=== PATIENT | female | born 1985 | race Caucasian/White ===

== ENCOUNTER → 2018-12-04 13:06 | Outpatient (CLI) | payer OTHER, MEDICAID, SELFPAY ==
[2018-12-04 13:39] LABS: Influenza A and B by PCR Rapid Negative (Negative)
== END ==
PROVIDERS: PCP Family Medicine; Visit Provider Physician Assistant
DX: R68.89 Other general symptoms and signs (principal); J02.9 Acute pharyngitis, unspecified
CPT/HCPCS: 87070; 87400

== ENCOUNTER 2019-08-01 15:37 | Emergency (ER) | payer OTHER, MEDICAID, SELFPAY ==
[2019-08-01 16:04] VITALS: BP 135/91; PULSE 105; RESP 20; TEMP 36.9; O2SAT 100
--- NOTE | 2019-08-01 17:23 | ED.BACK ---
HPI - Back Pain/Injury General Chief Complaint: Back Pain/Injury Stated Complaint: lower back pain Time Seen by Provider: 08/01/19 17:00 Source: patient Mode of arrival: Ambulatory Limitations: no limitations History of Present Illness HPI Narrative: 34-year-old female daily smoker with benign medical history presents with a chief complaint of lower back pain over the past few days in the absence of any injury. She denies any fever chills nor nausea, vomiting or diarrhea. She denies dysuria, frequency, urgency or hematuria. She is not dizzy nor weak or lightheaded. She denies any radiation of the pain. It improves when she remains still and worsens with movement. She denies any history of IV drug abuse. She denies any trouble controlling bowel or bladder. She denies any numbness, tingling or weakness of her lower extremities and denies any foot drop. MD Complaint: back pain Onset (ago): hour(s) Duration: constant Similar Symptoms Previously: No Location: lumbar spine Severity: moderate Quality: aching Radiation: none Relieving factors: none Exacerbating factors: movement Associated symptoms: denies other symptoms Related Data Home Medications Medication Instructions Recorded Confirmed medroxyprogesterone #0 04/23/16 12/04/18 Previous Rx's Medication Instructions Recorded hydroxyzine HCl 25 mg tablet See Rx Instructions PO QID PRN #60 07/28/18 tab propranolol 20 mg tablet 20 mg PO Q6H PRN #30 tab 10/09/18 cephalexin [Keflex] 500 mg PO QID 7 Days #28 cap 08/01/19 ketorolac 10 mg PO Q6H PRN #14 tab 08/01/19 lidocaine [Lidoderm] 1 patch TOP DAILY #15 each 08/01/19 Allergies Allergy/AdvReac Type Severity Reaction Status Date / Time No Known Drug Allergies Allergy Verified 12/04/18 12:56 Review of Systems Constitutional Constitutional: Denies chills, Denies fatigue, Denies fever(s), Denies frequent falls, Denies lethargy and Denies weakness Eyes Eyes: Denies change in vision, Denies eye discharge, Denies irritation and Denies loss of vision ENT Ears, Nose, Mouth, and Throat: Denies change in voice, Denies dizziness, Denies neck pain, Denies sore throat and Denies throat swelling Cardiovascular Cardiovascular: Denies chest pain, Denies irregular heart rhythm, Denies lightheadedness, Denies palpitations, Denies dyspnea, Denies dyspnea on exertion and Denies orthopnea Respiratory Respiratory: Denies cough, Denies dyspnea, Denies dyspnea on exertion and Denies wheezing Gastrointestinal Gastrointestinal: Denies abdominal pain, Denies change in bowel habits, Denies diarrhea, Denies nausea and Denies vomiting Genitourinary Genitourinary: Denies hematuria, Denies flank pain, Denies urinary incontinence and Denies urinary urgency Musculoskeletal Musculoskeletal: Reports back pain, Denies muscle weakness, Denies neck pain, Denies numbness and Denies tingling Integumentary/Breasts Skin/Breast: Denies pruritus, Denies erythema, Denies rash and Denies wounds Neurologic Neurologic: Denies behavioral changes, Denies confusion, Denies dizziness, Denies frequent falls, Denies loss of vision, Denies numbness, Denies tingling and Denies weakness Psychiatric Psychiatric: Denies anxiety, Denies behavioral changes, Denies confusion, Denies depression, Denies homicidal ideation and Denies suicidal ideation Endocrine Endocrine: Denies fatigue, Denies flushing and Denies palpitations Hematologic/Lymphatic Hematologic/Lymphatic: Denies easy bruising Allergic/Immunologic Allergic/Immunologic: Denies urticaria, Denies throat swelling and Denies wheezing Patient History Medical History Acne (Chronic 2009) Chicken pox (Resolved 1985) Chronic headaches (Chronic 2014) CTS (carpal tunnel syndrome) (Chronic 2011) Eczema (Chronic 2011) History of recurrent ear infection (Resolved 1985) Migraines (Chronic 2008) Seasonal allergies (Chronic) Shoulder pain (Chronic 2014) Surgical History Anesthesia (Resolved) Status post delivery (Resolved 2011) Status post delivery (Resolved 2012) Family History Brother Age: 36 Diabetes mellitus Hypertension High cholesterol High triglycerides Father Age: 64 Hypertension High cholesterol Grandfather Diabetes mellitus Psoriatic arthritis Alzheimer's disease Grandmother Age: 96 Hypertension Cataracts, bilateral Mother Age: 60 Psoriatic arthritis Grandmother Polio Emphysema of lung Social History Smoking Status: Current every day smoker Exam Narrative Exam Narrative: GENERAL: [34] year old patient appears stated age. Well-nourished, well-developed patient, in mild distress. HEAD: Atraumatic. Normocephalic. EYES: Pupils equal round and reactive. Extraocular motions intact. No scleral icterus. No injection or drainage. ENT: Nose without bleeding, purulent drainage. Throat without erythema, tonsillar hypertrophy or exudate. Airway patent. NECK: Trachea midline. Non tender CARDIOVASCULAR: Regular rate and rhythm without murmurs, gallops, or rubs. RESPIRATORY: Clear to auscultation. Breath sounds equal bilaterally. No wheezes, rales, or rhonchi. GASTROINTESTINAL: Abdomen soft, non-tender, nondistended. EXTREMITIES: No edema or joint tenderness. BACK: cloth finishing range back tender but free of any obvious external abnormalities. Patient exam notes decreased range of motion and muscle spasm, but no CVA tenderness, or vertebral point tenderness. There are no symptoms of cauda equina such as saddle anesthesia, and decreased reflexes, decreased sensation or strength. NEURO: AOx3. SKIN: No rash or erythema of visible areas Initial Vital Signs Initial Vital Signs: Vital Signs Temperature 98.4 F 08/01/19 16:04 Pulse Rate 105 H 08/01/19 16:04 Respiratory Rate 20 08/01/19 16:04 Blood Pressure 135/91 H 08/01/19 16:04 Pulse Oximetry 100 08/01/19 16:04 Course Orders Ordered: ED Orders 08/01/19 17:26 Urine Culture Stat Urine Microscopic Stat Discontinued Medications Hydrocodone Bitart/Acetaminophen (Vicodin Prepack) 1 bottle MISC SEEINSTR ONE Stop: 08/01/19 17:57 Last Admin: 08/01/19 18:16 Dose: 1 bottle Documented by: DORA Cefazolin Sodium (Keflex 250 Mg Prepack) 1 bottle MISC SEEINSTR ONE Stop: 08/01/19 18:09 Last Admin: 08/01/19 18:16 Dose: 1 bottle Documented by: DORA Cephalexin HCl (Keflex 250 Mg/5 Ml Prepack) 1 bottle MISC SEEINSTR ONE Stop: 08/01/19 17:57 Ketorolac Tromethamine (Toradol) 60 mg IM NOW ONE Stop: 08/01/19 17:55 Last Admin: 08/01/19 18:15 Dose: 60 mg Documented by: DORA Lidocaine (Lidoderm) 1 each TOP NOW ONE Stop: 08/01/19 17:56 Last Admin: 08/01/19 18:15 Dose: 1 each Documented by: DORA Vital Signs Vital signs: Vital Signs - 8 hr 08/01/19 16:04 08/01/19 18:31 Temperature 98.4 F Pulse Rate 105 H 82 Respiratory Rate 20 16 Blood Pressure 135/91 H 112/76 Pulse Oximetry 100 97 MDM - Back Pain/Injury Lab Data Labs: Lab Results 08/01/19 Range/Units 17:26 Urine RBC 1-5/hpf (0-5/HPF) Urine WBC 5-10/hpf H (0-5/HPF) Ur Squamous Epith Cells 1-5 /hpf (0-5/HPF) Urine Bacteria Many (>30) H (None) Ur Culture Indicated? Specimen cultured Point of Care Testing Test Results Negative Urine Dip Bedside Urine Glucose Negative Bedside Urine Bilirubin - Negative Bedside Urine Ketone - Negative Urine Specific [place] 1.015 Bedside Urine Occult Blood - Negative Bedside Urine pH 6.0 Bedside Urine Protein - Negative Bedside Urine Urobilinogen - Negative Bedside Urine Nitrite - Negative Bedside Urine Leukocytes ++ 125 Esterase Discharge Plan Departure Patient Disposition: Home Clinical Impression: Pyelonephritis Acute back pain Qualifiers: Back pain location: low back pain Back pain laterality: bilateral Sciatica presence: without sciatica Qualified Code(s): M54.5 - Low back pain Discharge Date/Time: 08/01/19 18:32 Instructions: DI for Urinary Tract Infection (UTI) Activity Restrictions/Additional Instructions: *You have been diagnosed with [acute pyelonephritis with back pain] *What to do: *Take medications as directed *Follow up with your primary care provider in 2-3 days, call for an appointment. Let them know you were seen in the Emergency Department and that we ask that you be seen in follow up *Return to ER if you should have any new, worsening or concerning symptoms Prescriptions: New cephalexin [Keflex] 500 mg capsule 500 mg PO QID 7 Days Qty: 28 RF: 0 ketorolac 10 mg tablet 10 mg PO Q6H PRN (Reason: pain) Qty: 14 RF: 0 lidocaine [Lidoderm] 5 % adhesive patch,medicated 1 patch TOP DAILY Qty: 15 RF: 0 No Action medroxyprogesterone 150 MG/1 ML suspension Qty: 0 RF: 0 hydroxyzine HCl 25 mg tablet See Rx Instructions PO QID PRN (Reason: anxiety) Qty: 60 RF: 5 propranolol 20 mg tablet 20 mg PO Q6H PRN (Reason: anxiety) Qty: 30 RF: 2 Referrals: Aneesh Razo MD [Primary Care Provider] -
[2019-08-01 17:49] LABS: Bacteria Urine Many (>30); Culture Indicated Urine Specimen Cultured; RBC Urine 1-5/HPF (0-5/HPF); Squamous Epithelial Cell Urine 1-5 /HPF (0-5/HPF); WBC Urine 5-10/HPF (0-5/HPF)
[2019-08-01] MEDS: KETOROLAC 60 MG/2 ML VIAL IM (18:15)
[2019-08-01] MEDS: LIDOCAINE PATCH 1 EACH ADH..PATCH TOP (18:15)
[2019-08-01] MEDS: HYDROCODONE/ACET 5/325 PREPACK 1 BOTTLE MISC (18:16)
[2019-08-01] MEDS: cephALEXin 250 MG PREPACK 1 BOTTLE MISC (18:16)
[2019-08-01 18:31] VITALS: BP 112/76; PULSE 82; RESP 16; O2SAT 97
== END 2019-08-01 18:32 | disposition home or self-care (01) ==
PROVIDERS: Emergency Provider Emergency Medicine; PCP Family Medicine
DX: N10 Acute pyelonephritis (principal)
CPT/HCPCS: 81003; 81015; 81025; 87086; 96372; 99282; 99283; J1885

== ENCOUNTER → 2021-09-17 16:28 | Outpatient (CLI) | payer OTHER, MEDICAID, SELFPAY | PROVIDERS: PCP Family Medicine; Referring Provider Family Medicine; Visit Provider Family Medicine | DX: L02.415 Cutaneous abscess of right lower limb (principal) | CPT/HCPCS: 87070; 87075; 87205 ==

== ENCOUNTER 2021-12-05 10:17 | Emergency (ER) | payer OTHER, MEDICAID, SELFPAY ==
[2021-12-05] VITALS (8 sets, daily range): BP systolic 119–133; BP diastolic 62–76; PULSE 66–94; RESP 18–20; TEMP 36.8; O2SAT 89–100
--- NOTE | 2021-12-05 10:36 | ED.BACK ---
HPI - Back Pain/Injury General Chief Complaint: Back Pain/Injury Stated Complaint: Back Spasms Time Seen by Provider: 12/05/21 10:24 Source: patient and EMS Mode of arrival: EMS History of Present Illness HPI Narrative: Patient is a 36-year-old female here for evaluation of bilateral with left being greater than right lower back discomfort. States the symptoms started late morning yesterday. There was not 1 specific incident that caused the symptoms to occur. She has had things like this in the past the took several weeks to get better. She did take some ibuprofen and use some ice last evening which provided minimal relief. Not having any urinary symptoms. No radiation down into her legs. No changes in bowel habits. No fevers. No specific trauma. Related Data Home Medications Medication Instructions Recorded Confirmed medroxyprogesterone 150 mg/mL #0 04/23/16 10/27/19 intramuscular suspension Previous Rx's Medication Instructions Recorded cyclobenzaprine 5 mg tablet 5 mg PO TID PRN #30 tab 08/06/19 fluoxetine 40 mg capsule 40 mg PO DAILY #30 cap 10/29/21 mupirocin 2 % topical ointment See Rx Instructions .ROUTE 11/05/21 .COMPLEX #22 g cyclobenzaprine 10 mg tablet 10 mg PO TID PRN #12 tab 12/05/21 hydrocodone 5 mg-acetaminophen 325 1 tab PO Q4-6H PRN #10 tab 12/05/21 mg tablet prednisone 20 mg tablet 20 mg PO DAILY 3 Days #3 tab 12/05/21 Allergies Allergy/AdvReac Type Severity Reaction Status Date / Time No Known Drug Allergies Allergy Verified 10/27/19 09:31 Review of Systems Constitutional Constitutional: Denies fever(s) Cardiovascular Cardiovascular: Reports system reviewed and no additional complaints, except as documented Respiratory Respiratory: Reports system reviewed and no additional complaints, except as documented Gastrointestinal Gastrointestinal: Reports system reviewed and no additional complaints, except as documented Genitourinary Genitourinary: Reports system reviewed and no additional complaints, except as documented Musculoskeletal Musculoskeletal: Reports system reviewed and no additional complaints, except as documented and Reports as per HPI Integumentary/Breasts Skin/Breast: Reports system reviewed and no additional complaints, except as documented Neurologic Neurologic: Reports system reviewed and no additional complaints, except as documented Hematologic/Lymphatic On Anticoagulants: No Patient History Medical History Acne (2009) Chicken pox (1985) Chronic headaches (2014) CTS (carpal tunnel syndrome) (2011) Dental infection Eczema (2011) History of recurrent ear infection (1985) Migraines (2008) Seasonal allergies Shoulder pain (2014) Surgical History Anesthesia Status post delivery (2011) Status post delivery (2012) Family History Brother Age: 38 Diabetes mellitus Hypertension High cholesterol High triglycerides Father Age: 66 Hypertension High cholesterol Grandfather Diabetes mellitus Psoriatic arthritis Alzheimer's disease Grandmother Age: 98 Hypertension Cataracts, bilateral Mother Age: 62 Psoriatic arthritis Grandmother Polio Emphysema of lung Social History Smoking Status: Current every day smoker Smoking Status: Current every day smoker alcohol intake frequency: holidays/special occasions only Substance Use Type: does not use Exam Initial Vital Signs Initial Vital Signs: Vital Signs Temperature 98.2 F 12/05/21 10:17 Pulse Rate 94 H 12/05/21 10:17 Respiratory Rate 20 12/05/21 10:17 Blood Pressure 133/68 12/05/21 10:17 Pulse Oximetry 96 12/05/21 10:17 HENMT Head: normal to inspection and normocephalic Resp Effort & Inspection: normal respiratory effort Cardio Rate: regular rate GI Inspection: normal to inspection Palpation: soft and No tender Back/Spine/Pelvis Other: Discomfort does seem to be midline lower lumbar region on the left but not specifically reproducible with palpation. Skin General: no rashes or lesions noted Neuro General: patient alert, patient awake, patient oriented x3 and moves all extremities Extrem General: normal to inspection and capillary refill normal Course Orders Ordered: Discontinued Medications Hydromorphone HCl (Hydromorphone 0.5 Mg Inj) 0.5 mg IV NOW ONE Stop: 12/05/21 10:39 Last Admin: 12/05/21 10:42 Dose: 0.5 mg Documented by: MANJIT Ketorolac Tromethamine (Ketorolac 30 Mg/Ml Vial) 30 mg IV NOW ONE Stop: 12/05/21 10:39 Last Admin: 12/05/21 10:42 Dose: 30 mg Documented by: MANJIT Ondansetron HCl (Ondansetron 4 Mg/2 Ml Inj) 4 mg IV NOW ONE Stop: 12/05/21 10:39 Last Admin: 12/05/21 10:42 Dose: 4 mg Documented by: MANJIT Vital Signs Vital signs: Vital Signs - 8 hr 12/05/21 10:17 12/05/21 10:51 12/05/21 11:00 Temperature 98.2 F Pulse Rate 94 H 84 73 Respiratory Rate 20 18 Blood Pressure 133/68 133/68 Pulse Oximetry 96 92 92 12/05/21 11:30 12/05/21 12:00 12/05/21 12:30 Temperature Pulse Rate 72 71 66 Respiratory Rate Blood Pressure Pulse Oximetry 93 89 L 100 12/05/21 12:45 12/05/21 12:52 Temperature Pulse Rate 72 Respiratory Rate Blood Pressure 119/62 119/76 Pulse Oximetry 98 MDM - Back Pain/Injury MDM Narrative Medical decision making narrative: Low suspicion for cauda equina. Low suspicion for fracture. Low suspicion for hematoma/abscess. No fevers. I do suspect musculoskeletal. No indication for radiologic studies here in the ER. Will send home with symptom treatment. She was given strict return precautions and follow-up instructions. She expressed understanding Discharge Plan Departure Patient Disposition: Home Clinical Impression: Strain of lumbar region Instructions: DI for Low Back Pain Activity Restrictions/Additional Instructions: I do recommend that you take all of the medications as directed. Contact your primary doctor for a follow-up. Try to stay as active as possible as this will help with your discomfort. Return to the emergency department for any new or worsening symptoms. Prescriptions: New prednisone 20 mg tablet 20 mg PO DAILY 3 Days Qty: 3 0RF cyclobenzaprine 10 mg tablet 10 mg PO TID PRN (Reason: muscle spasm) Qty: 12 0RF hydrocodone-acetaminophen 5-325 mg tablet 1 tab PO Q4-6H PRN (Reason: pain) Qty: 10 0RF No Action cyclobenzaprine 5 mg tablet 5 mg PO TID PRN (Reason: muscle spasm) Qty: 30 2RF fluoxetine 40 mg capsule 40 mg PO DAILY Qty: 30 2RF medroxyprogesterone 150 MG/1 ML suspension Qty: 0 0RF mupirocin 2 % ointment See Rx Instructions .ROUTE .COMPLEX Qty: 22 0RF Dose Instruction: APPLY TOPICALLY TO THE AFFECTED AREA THREE TIMES DAILY Rx Instructions: APPLY TOPICALLY TO THE AFFECTED AREA THREE TIMES DAILY Referrals: Priyanka Miller MD [Primary Care Provider] -
[2021-12-05] MEDS: HYDROMORPHONE 0.5 MG INJ IV (10:42)
[2021-12-05] MEDS: KETOROLAC 30 MG/ML VIAL IV (10:42)
[2021-12-05] MEDS: ONDANSETRON 4 MG/2 ML INJ IV (10:42)
== END 2021-12-05 12:53 | disposition home or self-care (01) ==
PROVIDERS: Emergency Provider Emergency Medicine; PCP Family Medicine
DX: S39.012A Strain of muscle, fascia and tendon of lower back, initial encounter (principal); F17.200 Nicotine dependence, unspecified, uncomplicated; X58.XXXA Exposure to other specified factors, initial encounter
CPT/HCPCS: 96374; 96375; 99283; 99284; J1170; J1885; J2405

== ENCOUNTER → 2021-12-07 16:50 | Outpatient (CLI) | payer OTHER, MEDICAID, SELFPAY ==
--- NOTE | 2021-12-07 16:53 | DI.RAD.S_ITS ---
PROCEDURE: XR LUMBAR SPINE 2-3V INDICATIONS: severe low back pain TECHNIQUE: 2 views of the lumbar spine were acquired. COMPARISON: None. FINDINGS: Bones: 5 [id number] vertebrae are present. There is straightening of normal lumbar lordosis. Mild leftward curvature of lower lumbar spine centered at L4 level is seen. No spondylolisthesis. No vertebral body compression fractures. No suspicious bony lesions. Soft tissues: Overlying bowel gas pattern is normal. No suspicious soft tissue calcifications. IMPRESSION: Straightening of normal lumbar lordosis. Very mild leftward curvature of lower lumbar spine centered at L4 level. No acute compression fracture or spondylolisthesis. Dictated by: Leroy Baird M.D. on 12/07/2021 at 17:49 Approved by: Leroy Baird M.D. on 12/07/2021 at 17:50
== END ==
PROVIDERS: PCP Family Medicine; Referring Provider Family Medicine; Visit Provider Family Medicine
DX: M54.50 Low back pain, unspecified (principal)
CPT/HCPCS: 72100

== ENCOUNTER 2023-12-25 08:44 | Emergency (ER) | payer OTHER, MEDICAID, SELFPAY ==
[2023-12-25 09:11] VITALS: BP 138/78; PULSE 100; RESP 16; TEMP 36.1; O2SAT 97; BMI 35.4
--- NOTE | 2023-12-25 09:15 | ED.LOWEXIN ---
HPI - Extremity Injury (Lower) General Chief Complaint: Extremity Injury, Lower Stated Complaint: R ankle injury Time Seen by Provider: 12/25/23 09:11 Source: patient, RN notes reviewed and old records reviewed Mode of arrival: Family Vehicle Limitations: no limitations History of Present Illness HPI Narrative: 38-year-old female smoker with complaint of right ankle injury. Patient was walking her dogs earlier today she slipped on wet grass and inverted her right ankle earlier this morning. Has pain more on the lateral side but throughout the ankle. Very painful to weightbear. She states it was very difficult to get back home. She states pain radiates up her leg with weight-bearing. Denies numbness or tingling. Movement also increases her pain at the ankle joint. Patient states no other injuries. She has not had prior injuries to this area. She states home medications include fluoxetine and oral contraceptive. Patient has had x2 as her only surgeries. Daily tobacco use, occasional alcohol, no other recreational drugs. Related Data Home Medications Medication Instructions Recorded Confirmed medroxyprogesterone 150 mg/mL 150 mg IM [id number] 07/29/22 12/30/22 intramuscular syringe Previous Rx's Medication Instructions Recorded hydrocodone 5 mg-acetaminophen 325 1 tab PO Q4-6H PRN pain #20 tabs 12/18/21 mg tablet cyclobenzaprine 10 mg tablet 10 mg PO TID PRN muscle spasm #12 01/30/22 tabs tizanidine 4 mg capsule See Rx Instructions .Route 02/19/22 .COMPLEX #30 caps mupirocin 2 % topical ointment See Rx Instructions .Route 03/08/22 .COMPLEX #22 grams norgestimate 0.25 mg-ethinyl 1 tab PO DAILY #84 tabs 10/27/23 estradiol 35 mcg tablet (Estarylla) fluoxetine 40 mg capsule 40 mg PO DAILY #30 caps 12/23/23 Allergies Allergy/AdvReac Type Severity Reaction Status Date / Time No Known Drug Allergies Allergy Verified 12/30/22 11:47 Review of Systems Review of Systems ROS Unobtainable: All systems reviewed & are unremarkable except as noted in HPI and below Patient History Medical History Dental infection Migraines (2008) Chronic headaches (2014) Shoulder pain (2014) CTS (carpal tunnel syndrome) (2011) Eczema (2011) Acne (2009) Chicken pox (1985) Seasonal allergies History of recurrent ear infection (1985) Surgical History Anesthesia Status post delivery (2012) Status post delivery (2011) Family History Brother Age: 40 Diabetes mellitus Hypertension High cholesterol High triglycerides Father Age: 68 Hypertension High cholesterol Grandfather Diabetes mellitus Psoriatic arthritis Alzheimer's disease Grandmother Age: 100 Hypertension Cataracts, bilateral Mother Age: 64 Psoriatic arthritis Grandmother Polio Emphysema of lung Social History Smoking Status: Current every day smoker Smoking Status: Current every day smoker alcohol intake frequency: holidays/special occasions only Substance Use Type: does not use Exam Narrative Exam Narrative: GENERAL: Alert and oriented x three, female in mild distress. HEENT: Head normocephalic, atraumatic, EOMI, pupils reactive, face symmetric, moist mucous membranes NECK: Supple, full range of motion CARDIOVASCULAR: Regular rate and rhythm without murmurs, rubs or gallops. RESPIRATORY: Breath sounds equal bilaterally, no wheezes rales or rhonchi. ABDOMEN: Soft, nontender. Normoactive bowel sounds all 4 quadrants. No guarding or rebound, rigidity, no mass EXTREMITIES: Decreased range of motion, patient appears to have swelling over the lateral malleolus and foot, no distinct bony tenderness on examination, patient is nontender over lateral and medial malleoli, toes and foot are nontender to palpation, lower extremity including tibia and fibula are nontender. Patient has cap refill less than 2 seconds in all 5 toes. 2+ dorsalis pedis. No clubbing. She is painful with movement at the joint of the ankle. No pain with movement of the toes or the knee. Neurovascularly intact NEUROLOGICAL: Cranial nerves II through XII grossly intact. Moving all extremities SKIN: Warm, dry, no petechiae, no rashes or lesions. Initial Vital Signs Initial Vital Signs: Vital Signs Temperature 97.0 F L 12/25/23 09:11 Pulse Rate 100 H 12/25/23 09:11 Respiratory Rate 16 12/25/23 09:11 Blood Pressure 138/78 12/25/23 09:11 Pulse Oximetry 97 12/25/23 09:11 Oxygen Delivery Method Room Air 12/25/23 09:11 Course Orders Ordered: ED Orders 12/25/23 09:14 XR ankle RT min 3V Stat Discontinued Medications Acetaminophen (Acetaminophen 325 Mg Tablet) 975 mg PO NOW ONE Stop: 12/25/23 09:15 Last Admin: 12/25/23 09:17 Dose: 975 mg Documented By: ZAKIA Ibuprofen (Ibuprofen 400 Mg Tablet) 800 mg PO NOW ONE Stop: 12/25/23 09:15 Last Admin: 12/25/23 09:17 Dose: 800 mg Documented By: CTS Vital Signs Vital signs: Vital Signs - 8 hr 12/25/23 10:55 Pulse Rate 80 Respiratory Rate 16 Blood Pressure 134/74 Pulse Oximetry 97 Oxygen Delivery Method Room Air MDM - Extremity Injury (Lower) Imaging Data Extremity x-ray #1: Radiologist's Impression: [address] [address] XRay Report Signed Patient: Sravanthi Abdi MR#: [id number] : 1985 Acct:[id number] Age/Sex: 38 / F Date of Service: 12/25/23 Loc: ED Accession Number: [id number] Procedure: XR ankle RT min 3V Ordering Provider: Blossom Thomason D.O. PROCEDURE: XR ANKLE RT MIN 3V INDICATIONS: fall TECHNIQUE: 3 views of the ankle were acquired. COMPARISON: None. FINDINGS: Bones: No fractures or dislocations. Ankle mortise is normally aligned. No suspicious bony lesions. Soft tissues: No tibiotalar joint effusion. Achilles tendon appears normal. IMPRESSION: No acute bony abnormality or significant effusion. Dictated by: Robinson Pinedo M.D. on 12/25/2023 at 10:06 Approved by: Robinson Pinedo M.D. on 12/25/2023 at 10:08 [facility] Narrative Medical decision making narrative: 38-year-old female with inversion injury to her right ankle patient does meet [place] ankle rules with inability weightbear. Patient received Tylenol/ibuprofen. Ankle xray is negative for acute change, discussed with patient GONZÁLEZ wrap, crutches, weight-bearing as tolerated with follow up in 7-10 days for recheck if symptoms are not improving. Patient ambulated to the bathroom and back she states uncomfortable but doable. We will continue with González wrap and crutches. Discharge Plan Departure Patient Disposition: Home Clinical Impression: Right ankle sprain Instructions: DI for Ankle Sprain Activity Restrictions/Additional Instructions: Follow up in 7-10 days for recheck if your symptoms are not improving. You may take Tylenol up to a 1000 mg every 6 hours and/or ibuprofen up to 600 mg every 6 hours as needed for pain. You may weightbear as tolerated if your symptoms resolve you do not have to continue to use the splint or crutches. Splint Care: Keep splint clean and dry. Elevated affected body part to decrease swelling. OK to use ice pack on the affected body part. Use for 15-20 minutes each time, for 5-6x per day. If you develop worsening pain, numbness, tingling, discoloration of the affected body part, loosen the splint by loosening the GONZÁLEZ wrap, and either see your doctor for an urgent re-assessment, or return to the Emergency Department. Return to the Emergency Department for any new or worsening symptoms. Prescriptions: No Action medroxyprogesterone 150 mg/mL syringe 150 mg IM [id number] Patient Comments: Next due 10/14/22 - 10/28/22 hydrocodone-acetaminophen 5-325 mg tablet 1 tab PO Q4-6H PRN (Reason: pain) Qty: 20 0RF cyclobenzaprine 10 mg tablet 10 mg PO TID PRN (Reason: muscle spasm) Qty: 12 0RF tizanidine 4 mg capsule See Rx Instructions .ROUTE .COMPLEX Qty: 30 0RF Dose Instruction: TAKE 1 CAPSULE BY MOUTH THREE TIMES DAILY NEEDED FOR MUSCLE SPASMS Rx Instructions: TAKE 1 CAPSULE BY MOUTH THREE TIMES DAILY NEEDED FOR MUSCLE SPASMS mupirocin 2 % ointment See Rx Instructions .ROUTE .COMPLEX Qty: 22 2RF Dose Instruction: APPLY TOPICALLY TO THE AFFECTED AREA THREE TIMES DAILY Rx Instructions: APPLY TOPICALLY TO THE AFFECTED AREA THREE TIMES DAILY norgestimate-ethinyl estradiol [Estarylla] 0.25-35 mg-mcg tablet 1 tab PO DAILY Qty: 84 1RF fluoxetine 40 mg capsule 40 mg PO DAILY Qty: 30 0RF Referrals: Priyanka Miller MD [Primary Care Provider] - Stand Alone Forms: Patient Portal/API
[2023-12-25] MEDS: ACETAMINOPHEN 325 MG TABLET 975 MG PO (09:17)
[2023-12-25] MEDS: IBUPROFEN 400 MG TABLET 800 MG PO (09:17)
--- NOTE | 2023-12-25 10:22 | PC.NURSE ---
Pt declined ice. states she doesnt want anything to touch her ankle.
[2023-12-25 10:55] VITALS: BP 134/74; PULSE 80; RESP 16; O2SAT 97
== END 2023-12-25 10:55 | disposition home or self-care (01) ==
PROVIDERS: Emergency Provider Emergency Medicine; PCP Family Medicine
DX: S93.401A Sprain of unspecified ligament of right ankle, initial encounter (principal); X50.1XXA Overexertion from prolonged static or awkward postures, initial encounter
CPT/HCPCS: 73610; 99283

== ENCOUNTER → 2025-04-04 11:15 | Outpatient (CLI) | payer OTHER, SELFPAY ==
--- NOTE | 2025-04-04 11:16 | DI.MG.S_ITS ---
MM screening mammo BI: 04/04/2025. BI-RADS: 1 CLINICAL: 40-year old female for bilateral screening mammogram. Tyrer-Cuzick lifetime risk of 5.3%. No personal or first-degree family history of breast cancer. PRIOR EXAMS: None. This is a baseline mammogram. MAMMOGRAPHY TECHNIQUE: 2D and 3D (tomosynthesis) digital mammographic views obtained, with additional images as needed for full coverage. Current study was also evaluated with a Computer Aided Detection (CAD) system. DENSITY A. The breasts are almost entirely fatty. MAMMOGRAPHY FINDINGS Bilateral: No suspicious mass, asymmetry, microcalcification, or other abnormality seen. IMPRESSION: * No evidence of malignancy. RECOMMENDATIONS Bilateral * Annual screening mammography. OVERALL ASSESSMENT CATEGORY BI-RADS-1: Negative. The [employer] recommends annual screening mammography beginning at age 40 for women with average risk of breast cancer. ELECTRONICALLY SIGNED: Jessica Pompa M.D. on 04/04/2025 at 09:02:41 PM PT Interpreting Station ID: [id number]
== END ==
LOC: MAMMO 11:16
PROVIDERS: PCP Family Medicine; Referring Provider Family Medicine; Visit Provider Family Medicine
DX: Z12.31 Encounter for screening mammogram for malignant neoplasm of breast (principal); R92.313 Mammographic fatty tissue density, bilateral breasts
CPT/HCPCS: 77063; 77067

== ENCOUNTER → 2025-08-01 15:17 | Outpatient (CLI) | payer OTHER, SELFPAY | PROVIDERS: PCP Family Medicine; Visit Provider Family Medicine | DX: N94.9 Unspecified condition associated with female genital organs and menstrual cycle (principal) | CPT/HCPCS: 87210 ==